=== PATIENT | male | born 1970 | race Two or more races ===

== ENCOUNTER 2018-07-23 21:26 | Emergency (ER) | payer SELFPAY ==
[~2018-07-23] VITALS: Ht 175.3 cm; Wt 63.5 kg
[2018-07-23] MEDS ORDERED: OLANZAPINE 5 MG TABLET PO ONE (21:30)
--- NOTE | 2018-07-23 21:33 | NUR ---
pt [address], found walking on side of [facility], c/o SI. AOx4, afebrile w/ resp even & unlabored, reports SI, denies HI, no auditory or visual hallucinations, admits to occasional alcohol & meth use, w/ no acute distress noted. Dr. Ruiz at bedside for further eval. Labs drawn & sent to lab.
[2018-07-23 21:42] LABS: BASOPHILS # (AUTO) 0.1 /CMM (0.0-0.2); BASOPHILS % (AUTO) 0.8 % (0.0-2.0); EOSINOPHILS % (AUTO) 1.9 % (0.0-6.0); HEMATOCRIT 43 % (39-51); HEMOGLOBIN 14.9 g/dL (13.5-17.5); LYMPHOCYTES # (AUTO) 2.5 /CMM (0.8-4.8); MEAN CORPUSCULAR HEMOGLOBIN 32 PG (26.0-33.0); MEAN CORPUSCULAR HGB CONC 35 g/dl (31.0-36.0); MEAN CORPUSCULAR VOLUME 93 fL (80-96); MONOCYTES # (AUTO) 0.8 /CMM (0.1-1.30); MONOCYTES % (AUTO) 7.9 % (2.0-12.0); NEUTROPHILS # (AUTO) 5.9 /CMM (1.8-8.9); NEUTROPHILS % (AUTO) 63.4 % (43.0-81.0); PLATELET COUNT (AUTO) 241 /CMM (150-450); RDW COEFFICIENT OF VARIATION 12.2 (11.5-15.0); RED BLOOD CELL COUNT(AUTO) 4.67 MIL/uL (4.5-6.0); WHITE BLOOD COUNT (AUTO) 9.5 K/uL (4.3-11.0)
[2018-07-23] MEDS ORDERED: OLANZAPINE 5 MG/TAB.RAPDIS PO ONE (22:00)
[2018-07-23 22:02] LABS: CALCIUM, SERUM 8.2 mg/dL (8.5-10.1); CREATININE 0.8 mg/dL (0.6-1.3); POTASSIUM 3.5 mmol/L (3.5-5.1)
[2018-07-23] MEDS ORDERED: OLANZAPINE 5 MG TABLET ONE (22:35)
--- NOTE | 2018-07-23 22:38 | NUR ---
pt medicated as ordered, given juice and food, sitting up in bed eating w/ no aspiration of food noted.
--- NOTE | 2018-07-23 23:41 | NUR ---
MIRANDA Manzanares at bedside for psych eval.
--- NOTE | 2018-07-24 00:31 | NUR ---
pt asleep in bed w/ resp even & unlabored, no signs of distress noted.
--- NOTE | 2018-07-24 06:01 | NUR ---
PT AOX4, DENIES SI/ HI AT THIS TIME. PT ambulatory with a steady gait. Patient discharged to home in stable condition. Written and verbal after care instructions given. Patient verbalizes understanding of instruction.
[2018-07-24 06:02] VITALS: BP 128/68
== END 2018-07-24 06:03 | disposition home or self-care (01) ==
LOC: ER 21:28
DX: F32.9 Major depressive disorder, single episode, unspecified (principal); R45.851 Suicidal ideations; F19.10 Other psychoactive substance abuse, uncomplicated; F17.200 Nicotine dependence, unspecified, uncomplicated
CPT/HCPCS: 36415; 80048; 85025; 99284; A4606; G0480; Z7610